=== PATIENT | male | born 1965 | race Caucasian/White ===

== ENCOUNTER → 2024-07-04 08:19 | Outpatient (CLI) | payer OTHER, SELFPAY ==
--- NOTE | 2024-07-04 08:21 | DI.US.S_ITS ---
PROCEDURE: US ABDOMEN LIMITED INDICATIONS: umbilical hernia wo obstruction TECHNIQUE: Real-time focused scanning was performed of the abdomen, with image documentation. COMPARISON: None. FINDINGS: Fat containing umbilical hernia is present with defect measuring approximately 1.8 x 2.1 x 2.5 cm with rectus defect measuring 1 cm. It is not reducible at time of exam. IMPRESSION: Non reducible fat containing umbilical hernia. Dictated by: Aminata Fairbanks M.D. on 07/04/2024 at 14:49 Approved by: Aminata Fairbanks M.D. on 07/04/2024 at 14:51
== END ==
PROVIDERS: Family Provider Nurse Practitioner Family; PCP Nurse Practitioner Family; Referring Provider Nurse Practitioner Family; Visit Provider Nurse Practitioner Family
DX: K42.9 Umbilical hernia without obstruction or gangrene (principal)
CPT/HCPCS: 76705

== ENCOUNTER 2024-08-16 12:47 | Day surgery (SDC) | payer OTHER, SELFPAY ==
[2024-08-14 09:22] VITALS: BMI 33.3
[2024-08-16 13:01] VITALS: BP 141/94; PULSE 66; RESP 14; TEMP 36.3; O2SAT 96; BMI 33.3
[2024-08-16] MEDS: ACETAMINOPHEN 325 MG TABLET 975 MG PO (13:13)
[2024-08-16] MEDS: LACTATED RINGERS 1,000 ML 42 ML IV (13:13)
--- NOTE | 2024-08-16 14:05 | PM.PREOP ---
Pre-operative Note COVID-19 COVID-19 status: Not tested Interval Note History & Physical reviewed/Exam performed by Physician: Yes Changes to H&P: No ASA Class (for procedural sedation): II
--- NOTE | 2024-08-16 14:30 | SUR.OPER ---
Supine on padded OR bed, head on pillow, arms secured on padded arm boards at <90 degrees abduction, legs uncrossed, safety belt at thigh, tape over blanket over lower legs.
[2024-08-16] MEDS: CEFAZOLIN 2 GM/100 ML PREMIX 100 ML IV (14:32)
[2024-08-16] MEDS: CEFAZOLIN VIAL 1 GM in SODIUM CHLORIDE 0.9% 100 ML IV (14:34)
[2024-08-16] MEDS: BUPIVACAINE 0.5% W/ EPI (PF) 30 ML VIAL INJ (14:38)
--- NOTE | 2024-08-16 14:56 | PM.OP.1 ---
Operative Date/Time/Diagnoses Date of procedure: 08/16/24 Time of procedure: 14:56 Pre-op diagnosis: Recurrent umbilical hernia Post-op diagnosis: same Procedure & Clinicians Procedure: Open recurrent umbilical hernia repair with mesh Same procedure as scheduled: Yes Surgeon: Tc Pires Toy Assembler Wood: Colton Olvera Anesthesia Type: General Operative Notes Procedure in detail: Ancef was administered. The patient was brought to the operating room, placed on the table in the supine position and general anesthesia was induced. The abdomen was prepped and draped in the usual fashion. A time-out was performed. A 6 cm curvilinear incision was made inferior to the umbilicus. The hernia sac was dissected free from the surrounding subcutaneous adipose tissue. The sac was dissected off the umbilical stalk using a combination of cautery, sharp and blunt dissection. The hernia sac was dissected free from the fascial ring and allowed to drop back down into the abdomen. The fascial defect was less than 1 cm it appeared to be inferior to the old Ethibond suture at the base of the umbilical stalk. The stalk was transected at its base. The fascia was then closed transversely with multiple interrupted 0 Ethibond sutures. The subcutaneous adipose tissue was cleared off of the anterior sheath circumferentially about 2 cm in each direction. A piece of polypropylene mesh was trimmed to fit over the fascial closure and secured with Tisseel. Once the Tisseel was dried the umbilical skin was tacked down to the mesh with a single 3-0 Vicryl stitch. The skin was closed with multiple interrupted 3-0 Vicryl dermal sutures followed by a running 4 Monocryl subcuticular closure. Steri-Strips were applied and an abdominal binder was applied. EBL: 10 mL Specimen: None Colton KHAN provided assistance with exposure, retraction and closure of incisions. Post-operative Condition: stable Disposition: PACU
[2024-08-16 15:08] VITALS: BP 171/98; PULSE 93; RESP 15; TEMP 36.8; O2SAT 85
[2024-08-16 15:13] VITALS: BP 167/99; PULSE 89; RESP 14; TEMP 36.8; O2SAT 95
[2024-08-16 15:18] VITALS: BP 168/90; PULSE 85; RESP 14; TEMP 36.7; O2SAT 95
[2024-08-16 15:24] VITALS: BP 160/87; PULSE 84; RESP 18; TEMP 36.6; O2SAT 97
[2024-08-16] MEDS: OXYCODONE IR 5 MG TABLET PO (15:29)
[2024-08-16] MEDS: KETOROLAC 30 MG/ML VIAL IV (15:38)
[2024-08-16] MEDS: hydrOXYzine 50 MG/ML INJ 25 MG IM (15:38)
[2024-08-16] MEDS: LACTATED RINGERS 1,000 ML 1000 ML IV (15:41)
[2024-08-16] MEDS: SUMAtriptan 6 MG/0.5 ML VIAL SUBCUT (15:57)
== END 2024-08-16 16:32 | disposition home or self-care (01) ==
PROVIDERS: Family Provider Nurse Practitioner Family; PCP Nurse Practitioner Family; Referring Provider Surgery; Visit Provider Surgery
PROC: (CPT 49613; principal; 2024-08-16 14:15)
DX: K42.1 Umbilical hernia with gangrene (principal)
CPT/HCPCS: 49613; C1781; C9250; J0690; J1885; J2250; J2704; J3010; J3030; J3410